=== PATIENT | female | born 1980 | race Caucasian/White ===

== ENCOUNTER 2017-02-26 02:32 | Emergency (ER) | payer OTHER ==
[2017-02-26 02:58] VITALS: BP 109/75; PULSE 94; BMI 28.1
--- NOTE | 2017-02-26 04:54 | PDOC ---
History of Present Illness - General Chief Complaint: Psychiatric Stated Complaint: PANIC ATTACK Time Seen by Provider: 02/26/17 02:49 History Source: Patient Exam Limitations: No Limitations - History of Present Illness Initial Comments: 36 yo F history hypothyroid presents with anxiety attack. She states that she has had extreme stress with her job and related to her mother's health recently. She states she was seen at [facility] recently for similar complaint. She was given ativan, which helped the anxiety. She was prescribed vistaril, followed up with psychologist, who recommended that she see a psychiatrist, as she may need medication in addition to talk therapy. She states that she was previously on phentermine for weight loss, she has been taking charcoal "for health", and had a colonic. She is uncertain what was instilled into her colon ( whether it was water or some sort of solution). No recent cp, fever, SOB, abd pain, N/V, SOLIS. Past History - Past Medical History Allergies/Adverse Reactions: Allergies Allergy/AdvReac Type Severity Reaction Status Date / Time No Known Allergies Allergy Verified 02/26/17 02:58 Home Medications: Ambulatory Orders Hydroxyzine Pamoate [Vistaril -] 50 mg PO TID 02/26/17 Phentermine HCl 37.5 mg PO DAILY 02/26/17 Thyroid,Pork [[place] Thyroid] 60 mg PO DAILY 02/26/17 Psychiatric Problems: Yes (anxiety) - Immunization History Immunization Up to Date: No - Suicide/Smoking/Psychosocial Hx Smoking History: Never smoked Have you smoked in the past 12 months: No Information on smoking cessation initiated: No Hx Alcohol Use: No Drug/Substance Use Hx: No Review of Systems - Review of Systems Able to Perform ROS?: Yes Comments:: GENERAL/CONSTITUTIONAL: No fever or chills. No weakness. HEAD, EYES, EARS, NOSE AND THROAT: No change in vision. No ear pain or discharge. No sore throat. CARDIOVASCULAR: No chest pain or shortness of breath. RESPIRATORY: No cough, wheezing, or hemoptysis. GASTROINTESTINAL: No nausea, vomiting, diarrhea or constipation. GENITOURINARY: No dysuria, frequency, or change in urination. MUSCULOSKELETAL: No joint or muscle swelling or pain. No neck or back pain. SKIN: No rash NEUROLOGIC: No headache, vertigo, loss of consciousness, or change in strength/ sensation. ENDOCRINE: No increased thirst. No abnormal weight change. HEMATOLOGIC/LYMPHATIC: No anemia, easy bleeding, or history of blood clots. ALLERGIC/IMMUNOLOGIC: No hives or skin allergy. PSYCHIATRIC: +Anxiety. *Physical Exam - Vital Signs Last Vital Signs Temp Pulse Resp BP Pulse Ox 94 H 18 109/75 100 02/26/17 02:56 02/26/17 02:56 02/26/17 02:56 02/26/17 02:56 - Physical Exam Comments: GENERAL: Awake, alert, and fully oriented, in no acute distress HEAD: No signs of trauma EYES: PERRLA, EOMI, sclera anicteric, conjunctiva clear ENT: Auricles normal inspection, hearing grossly normal, nares patent, oropharynx clear without exudates. Moist mucosa NECK: Normal ROM, supple, no lymphadenopathy, JVD, or masses LUNGS: Breath sounds equal, clear to auscultation bilaterally. No wheezes, and no crackles HEART: Regular rate and rhythm, normal S1 and S2, no murmurs, rubs or gallops ABDOMEN: Soft, nontender, normoactive bowel sounds. No guarding, no rebound. No masses EXTREMITIES: Normal range of motion, no edema. No clubbing or cyanosis. No cords, erythema, or tenderness NEUROLOGICAL: Cranial nerves II through XII grossly intact. Normal speech, normal gait SKIN: Warm, Dry, normal turgor, no rashes or lesions noted. PSYCHIATRIC: Mildly anxious. TP and TC intact. Good insight. Medical Decision Making - Medical Decision Making 02/26/17 05:13 Patient endorses significant anxiety about her job, her health, and her mother' s health. She has started to see a therapist, but is still having intermittent anxiety. She took the vistaril twice but it has not helped- it mainly made her tired. She states she is feeling somewhat better now. We discussed relaxation techniques, as well as need to establish care with a psychiatrist, as she may require medication. Will give ativan for anxiety at present. Will provide patient with a list of psychiatrists for this facility so that she may cross- reference with her insurance. *DC/Admit/Observation/Transfer Diagnosis at time of Disposition: Anxiety - Discharge Dispostion Disposition: HOME Condition at time of disposition: Stable Admit: No - Patient Instructions Printed Discharge Instructions: DI for Anxiety -- Adult
== END 2017-02-26 06:00 | disposition home or self-care (01) ==
LOC: JER 02:32
PROC: 3E023NZ Introduction of Analgesics, Hypnotics, Sedatives into Muscle, Percutaneous Approach (ICD-10-PCS; principal; 2017-02-26)
DX: F41.9 Anxiety disorder, unspecified (principal); E03.9 Hypothyroidism, unspecified
CPT/HCPCS: 84703; 99282-25